=== PATIENT | male | born 1950 | race Caucasian/White ===

== ENCOUNTER 2019-06-13 02:33 | Inpatient (IN) | payer MEDICAID, MEDICARE ==
[~2019-06-13] VITALS: Ht 167.6 cm; Wt 62.3 kg
[2019-06-13] MEDS ORDERED: ALBUTEROL SULFATE 2.5 MG/3 ML ONE (02:37)
--- NOTE | 2019-06-13 02:46 | NUR ---
68Y M BIB EMS FOR SOB 81% RA INITIALLY. AFTER 1ALB 1 DUONEB NOW 94% RA, PT WAS FOUND ON THE GROUND IN FRONT OF [facility], PT STS HE HAD ONE BEER. PT REPORTS JUST MOVED HERE FROM [place] A MONTH AGO AND HAS NOT TAKEN ANY OF HIS MEDICATIONS SINCE. PT HAS HX OF COPD, CHF, HTN AND HYPERLIP. PT CONNECTED TO ALL MONITORING. RT AT BEDSIDE FOR ANOTHER BREATHING TX, PA AT BEDSIDE TO ASSESS PT. CALL LIGHT IN REACH
--- NOTE | 2019-06-13 02:50 | NUR ---
XRAY AT BEDSIDE
--- NOTE | 2019-06-13 02:57 | NUR ---
LAB AT BEDSIDE
[2019-06-13] MEDS ORDERED: ALBUTEROL/IPRATROPIUM 2.5MG/0.5MG, 3 ML NPPB ONE (03:00)
[2019-06-13 03:10] LABS: BASOPHILS # (AUTO) 0.02 x10^3/uL (0-0.1); BASOPHILS % (AUTO) 0 % (0-1); EOSINOPHILS # (AUTO) 0.07 x10^3/uL (0-0.4); EOSINOPHILS % (AUTO) 1 % (1-7); LYMPHOCYTES # (AUTO) 1.05 x10^3/uL (1-3.4); LYMPHOCYTES % (AUTO) 19 % (22-44); MD NO; MEAN CORPUSCULAR HEMOGLOBIN 30.8 pg (27.5-34.5); MEAN CORPUSCULAR HGB CONC 32.9 g/dL (33.2-36.2); MEAN CORPUSCULAR VOLUME 93.5 fL (81-97); MEAN PLATELET VOLUME 9.1 fL (7.4-10.4); MONOCYTES # (AUTO) 0.55 x10^3/uL (0.2-0.8); MONOCYTES % (AUTO) 10 % (2-9); NEUTROPHILS # (AUTO) 3.89 x10^3/uL (1.8-6.8); NEUTROPHILS % (AUTO) 70 % (42-75); PLATELET COUNT 201 x10^3/uL (130-400); RED BLOOD COUNT 4.55 x10^6/uL (4.38-5.82)
[2019-06-13 03:22] LABS: ALANINE AMINOTRANSFERASE 47 U/L (12-78); ANION GAP 7 mmol/L (5-15); CALCIUM 8.2 mg/dL (8.5-10.1); CHLORIDE 111 mmol/L (98-107); CREATININE 0.79 mg/dL (0.7-1.3)
[2019-06-13 03:26] LABS: ALKALINE PHOSPHATASE 107 U/L (45-117); BILIRUBIN,TOTAL 0.3 mg/dL (0.2-1.0); TOTAL PROTEIN 6.1 g/dL (6.4-8.2)
--- NOTE | 2019-06-13 03:28 | NUR ---
TROP 0.160 JA FROM CHEMISTRY
[2019-06-13] MEDS ORDERED: ASPIRIN 81 MG TABLET CHEW ONE (03:34)
--- NOTE | 2019-06-13 03:35 | NUR ---
MD AT BEDSIDE TO ASSESS PT
[2019-06-13] MEDS ORDERED: ASPIRIN 81 MG TABLET CHEW PO ONE (04:00)
[2019-06-13 05:20] VITALS: BP 145/86
[2019-06-13] MEDS: ENOXAPARIN 40 MG/0.4 ML SQ SCH (05:25)
[2019-06-13] MEDS ORDERED: LORazepam 1MG TABLET PO PRN ×4 (05:30)
[2019-06-13] MEDS ORDERED: ONDANSETRON 2MG/ML, 2ML IVPush PRN (05:30)
[2019-06-13] MEDS ORDERED: ACETAMINOPHEN 325 MG TABLET PO PRN ×2 (05:30→08:30)
[2019-06-13] MEDS ORDERED: ONDANSETRON ODT 4 MG PO PRN (05:30)
[2019-06-13] MEDS ORDERED: LORazepam 2 MG/ML, 1ML IV PRN ×4 (05:30)
[2019-06-13] MEDS ORDERED: OXYcodone IR 5MG TABLET PO PRN (05:30)
[2019-06-13] MEDS ORDERED: LORazepam 0.5MG TABLET PO PRN (05:30)
[2019-06-13] MEDS ORDERED: hydrALAzine 20 MG/ML, 1ML IVPush PRN (05:30)
[2019-06-13] MEDS ORDERED: POLYETHYLENE GLYCOL 17 GM PACKET PO PRN (05:30)
[2019-06-13] MEDS ORDERED: DOCUSATE 100 MG CAPSULE PO PRN (05:30)
[2019-06-13] MEDS ORDERED: BISACODYL 10 MG SUPP PR PRN (05:30)
[2019-06-13] MEDS ORDERED: PROMETHAZINE 25 MG/ML, 1ML IM PRN (05:30)
[2019-06-13] MEDS: NICOTINE 14MG/24 HR PATCH.TD24 TD SCH (06:13)
[2019-06-13 06:47] LABS: RAPID INFLUENZA A Negative (Negative); RAPID INFLUENZA B Negative (Negative)
[2019-06-13 07:15] LABS: FREE T4 (FREE THYROXINE) 1.05 ng/dL (0.76-1.46); TROPONIN I 0.136 ng/mL (0.000-0.045)
[2019-06-13] MEDS ORDERED: FUROSEMIDE 20 MG/2 ML IV SCH ×2 (07:30→09:00)
[2019-06-13] MEDS: LOSARTAN 25MG TABLET PO SCH (09:46)
[2019-06-13] MEDS: CARVEDILOL 3.125 MG TABLET PO SCH ×2 (09:46→17:14)
[2019-06-13 10:00] VITALS: BP 134/85
[2019-06-13 10:31] LABS: TROPONIN I 0.103 ng/mL (0.000-0.045)
[2019-06-13 15:00] VITALS: BP 152/94
[2019-06-13 20:38] VITALS: BP 124/90
[2019-06-13] MEDS: FUROSEMIDE 20 MG TABLET PO SCH (20:42)
[2019-06-14] MEDS: LORazepam 2 MG/ML, 1ML IV PRN ×5 (00:03→05:30)
[2019-06-14 02:48] VITALS: BP 175/71
[2019-06-14] MEDS: CARVEDILOL 3.125 MG TABLET PO SCH ×3 (05:26→19:53)
[2019-06-14] MEDS: ENOXAPARIN 40 MG/0.4 ML SQ SCH (05:30)
[2019-06-14] MEDS: NICOTINE 14MG/24 HR PATCH.TD24 TD SCH (05:37)
[2019-06-14 06:10] LABS: ALANINE AMINOTRANSFERASE 40 U/L (12-78); ALBUMIN 3.1 g/dL (3.4-5.0); ANION GAP 3 mmol/L (5-15); CALCIUM 8.2 mg/dL (8.5-10.1); CHLORIDE 109 mmol/L (98-107); CHOLESTEROL, TOTAL 137 mg/dL (140-239); CREATININE 0.81 mg/dL (0.7-1.3)
[2019-06-14 06:14] LABS: ALKALINE PHOSPHATASE 100 U/L (45-117); BILIRUBIN,TOTAL 0.6 mg/dL (0.2-1.0); CHOL/HDL RATIO 2.3; HDL CHOL % 43 % (26-37); HDL CHOLESTEROL (DIRECT) 59 mg/dL (40-60); LDL CHOLESTEROL,CALCULATED 65 mg/dL (54-169); LDL/HDL RATIO 1.1 (0.5-3.0); TOTAL PROTEIN 6.1 g/dL (6.4-8.2); TRIGLYCERIDES 66 mg/dL (50-200); VLDL CHOLESTEROL 13 mg/dL (0-25)
[2019-06-14 06:18] LABS: BASOPHILS # (AUTO) 0.04 x10^3/uL (0-0.1); BASOPHILS % (AUTO) 1 % (0-1); EOSINOPHILS # (AUTO) 0.01 x10^3/uL (0-0.4); EOSINOPHILS % (AUTO) 0 % (1-7); LYMPHOCYTES # (AUTO) 0.99 x10^3/uL (1-3.4); LYMPHOCYTES % (AUTO) 11 % (22-44); MD NO; MEAN CORPUSCULAR HEMOGLOBIN 30.8 pg (27.5-34.5); MEAN CORPUSCULAR HGB CONC 32.7 g/dL (33.2-36.2); MEAN PLATELET VOLUME 9.5 fL (7.4-10.4); MONOCYTES # (AUTO) 0.73 x10^3/uL (0.2-0.8); MONOCYTES % (AUTO) 8 % (2-9); NEUTROPHILS # (AUTO) 7.53 x10^3/uL (1.8-6.8); NEUTROPHILS % (AUTO) 81 % (42-75); PLATELET COUNT 238 x10^3/uL (130-400); RED BLOOD COUNT 4.56 x10^6/uL (4.38-5.82); RED CELL DISTRIBUTION WIDTH 16.4 % (9.4-14.8)
[2019-06-14] MEDS ORDERED: POTASSIUM CHLORIDE 20 MEQ PACKET PO ONE (07:00)
[2019-06-14] MEDS ORDERED: NALOXONE 1 MG/ML, 2ML IVPush ONE (07:30)
[2019-06-14] MEDS ORDERED: MAGNESIUM SULFATE/D5W 100 ML IV ONE (07:30)
[2019-06-14] MEDS ORDERED: FLUMAZENIL 0.1 MG/1 ML, 5ML ONE (07:44)
[2019-06-14] MEDS: AMPICILLIN/SULBACTAM 3 GM in SODIUM CHLORIDE 0.9% 100 ML IV SCH ×3 (08:00→19:56)
[2019-06-14] MEDS ORDERED: PROPOFOL 10 MG/ML, 100ML IV ONE (08:00)
[2019-06-14] MEDS ORDERED: ZIPRASIDONE 20 MG INJ IM ONE (08:00)
[2019-06-14] MEDS ORDERED: FLUMAZENIL 0.1 MG/1 ML, 5ML IVPush ONE ×2 (08:00)
[2019-06-14] MEDS ORDERED: SUCCINYLCHOLINE 20 MG/ML, 10ML ONE (08:00)
[2019-06-14] MEDS ORDERED: POTASSIUM CHLORIDE 20 MEQ, MAGNESIUM SULFATE 2 GM, THIAMINE 200 MG, FOLIC ACID 1 MG, MV... IV SCH (08:00)
[2019-06-14] MEDS ORDERED: MIDAZOLAM 1 MG/ML, 5ML ONE (08:00)
[2019-06-14] MEDS ORDERED: ETOMIDATE 20 MG/10 ML ONE (08:00)
[2019-06-14] MEDS ORDERED: MAGNESIUM SULFATE PMX 2GM/50ML 50 ML IV ONE (08:00)
[2019-06-14] MEDS: FUROSEMIDE 20 MG TABLET PO SCH ×2 (09:00→21:39)
[2019-06-14] MEDS: THIAMINE 200 MG in SODIUM CHLORIDE 0.9% 50 ML IV SCH (09:00)
[2019-06-14] MEDS: LOSARTAN 25MG TABLET PO SCH (09:00)
[2019-06-14 13:50] VITALS: BP 94/60
[2019-06-14 13:53] VITALS: BP 94/69
[2019-06-14 13:59] VITALS: BP 111/68
[2019-06-14] MEDS ORDERED: SODIUM BICARB 8.4%, 50ML SYRINGE ONE (14:14)
[2019-06-14] MEDS ORDERED: SENNA/DOCUSATE TABLET NG PRN (16:00)
[2019-06-14] MEDS ORDERED: DEXTROSE 4 GM TAB.CHEW PO PRN (16:00)
[2019-06-14] MEDS ORDERED: LIDOCAINE-MPF 1%, 2ML ENDO PRN (16:00)
[2019-06-14] MEDS ORDERED: DEXTROSE 50%, 50ML SYRINGE IVPush PRN (16:00)
[2019-06-14] MEDS ORDERED: GLUCAGON 1 MG IM PRN (16:00)
[2019-06-14] MEDS ORDERED: PHARMACY MAY ADJ FOR RENAL FX MC SCH (16:00)
[2019-06-14] MEDS ORDERED: LACTULOSE 20 GM/30 ML UDC NG PRN (16:00)
[2019-06-14] MEDS ORDERED: BISACODYL 10 MG SUPP PR PRN (16:00)
[2019-06-14] MEDS ORDERED: SENNA 176 MG/5 ML ORAL SOL NG PRN (16:00)
[2019-06-14 16:19] LABS: AMPHETAMINE SCREEN, URINE Negative (Negative); BARBITURATE SCREEN, URINE Negative (Negative); BENZODIAZEPINE SCREEN, URINE Positive (Negative); CANNABINOID SCREEN, URINE Negative (Negative); COCAINE SCREEN, URINE Negative (Negative); METHADONE SCREEN, URINE Negative (Negative); OPIATE SCREEN, URINE Negative (Negative)
[2019-06-14] MEDS: ALBUTEROL/IPRATROPIUM 2.5MG/0.5MG, 3 ML INLINE SCH ×2 (19:00→22:10)
[2019-06-14] MEDS: PROPOFOL 100 ML IV PRN (20:05)
[2019-06-14] MEDS: SODIUM CHLORIDE FLUSH 10ML SYR IVF SCH (21:39)
[2019-06-15] MEDS: AMPICILLIN/SULBACTAM 3 GM in SODIUM CHLORIDE 0.9% 100 ML IV SCH ×4 (02:20→20:34)
[2019-06-15] MEDS: ALBUTEROL/IPRATROPIUM 2.5MG/0.5MG, 3 ML INLINE SCH ×6 (02:44→22:27)
[2019-06-15] MEDS: PROPOFOL 100 ML IV PRN ×3 (03:20→20:45)
[2019-06-15 05:18] LABS: BASOPHILS # (AUTO) 0.09 x10^3/uL (0-0.1); BASOPHILS % (AUTO) 1 % (0-1); EOSINOPHILS % (AUTO) 0 % (1-7); LYMPHOCYTES # (AUTO) 1.07 x10^3/uL (1-3.4); LYMPHOCYTES % (AUTO) 14 % (22-44); MD NO; MEAN CORPUSCULAR HEMOGLOBIN 30.3 pg (27.5-34.5); MEAN CORPUSCULAR HGB CONC 32.7 g/dL (33.2-36.2); MEAN CORPUSCULAR VOLUME 92.6 fL (81-97); MEAN PLATELET VOLUME 8.9 fL (7.4-10.4); MONOCYTES # (AUTO) 0.76 x10^3/uL (0.2-0.8); MONOCYTES % (AUTO) 10 % (2-9); NEUTROPHILS % (AUTO) 74 % (42-75); PLATELET COUNT 214 x10^3/uL (130-400); RED BLOOD COUNT 4.49 x10^6/uL (4.38-5.82); RED CELL DISTRIBUTION WIDTH 15.6 % (9.4-14.8)
[2019-06-15 05:28] LABS: ANION GAP 6 mmol/L (5-15); CALCIUM 8.1 mg/dL (8.5-10.1); CHLORIDE 110 mmol/L (98-107); CREATININE 1.27 mg/dL (0.7-1.3)
[2019-06-15] MEDS: NICOTINE 14MG/24 HR PATCH.TD24 TD SCH (05:54)
[2019-06-15] MEDS: CARVEDILOL 3.125 MG TABLET PO SCH ×2 (05:55→17:48)
[2019-06-15] MEDS: ENOXAPARIN 40 MG/0.4 ML SQ SCH (05:55)
[2019-06-15] MEDS: POTASSIUM CHLORIDE 10% 40 MEQ/30 ML UDC PO SCH ×2 (09:06→20:35)
[2019-06-15] MEDS: FUROSEMIDE 20 MG TABLET PO SCH ×2 (09:10→20:35)
[2019-06-15] MEDS: LOSARTAN 25MG TABLET PO SCH (09:13)
[2019-06-15] MEDS: THIAMINE 200 MG in SODIUM CHLORIDE 0.9% 50 ML IV SCH (09:14)
[2019-06-15] MEDS: SODIUM CHLORIDE FLUSH 10ML SYR IVF SCH ×2 (09:16→20:35)
[2019-06-15] MEDS: DIAZEPAM 5 MG/ML, 2ML IVPush SCH ×3 (09:22→20:35)
[2019-06-15] MEDS ORDERED: MIDAZOLAM 1 MG/ML, 2ML ONE (10:38)
[2019-06-15] MEDS ORDERED: MIDAZOLAM 1 MG/ML, 2ML IVPush PRN (11:00)
[2019-06-16] MEDS: ALBUTEROL/IPRATROPIUM 2.5MG/0.5MG, 3 ML INLINE SCH ×6 (03:00→22:34)
[2019-06-16] MEDS: DIAZEPAM 5 MG/ML, 2ML IVPush SCH (03:07)
[2019-06-16] MEDS: AMPICILLIN/SULBACTAM 3 GM in SODIUM CHLORIDE 0.9% 100 ML IV SCH ×4 (03:07→20:26)
[2019-06-16] MEDS: PROPOFOL 100 ML IV PRN ×4 (03:08→22:56)
[2019-06-16 04:41] LABS: BASOPHILS # (AUTO) 0.04 x10^3/uL (0-0.1); BASOPHILS % (AUTO) 1 % (0-1); EOSINOPHILS # (AUTO) 0.07 x10^3/uL (0-0.4); EOSINOPHILS % (AUTO) 1 % (1-7); LYMPHOCYTES # (AUTO) 1.14 x10^3/uL (1-3.4); LYMPHOCYTES % (AUTO) 20 % (22-44); MD NO; MEAN CORPUSCULAR HEMOGLOBIN 30.5 pg (27.5-34.5); MEAN CORPUSCULAR HGB CONC 32.5 g/dL (33.2-36.2); MEAN CORPUSCULAR VOLUME 93.9 fL (81-97); MEAN PLATELET VOLUME 8.6 fL (7.4-10.4); MONOCYTES # (AUTO) 0.59 x10^3/uL (0.2-0.8); MONOCYTES % (AUTO) 11 % (2-9); NEUTROPHILS # (AUTO) 3.73 x10^3/uL (1.8-6.8); NEUTROPHILS % (AUTO) 67 % (42-75); PLATELET COUNT 205 x10^3/uL (130-400); RED BLOOD COUNT 4.79 x10^6/uL (4.38-5.82); RED CELL DISTRIBUTION WIDTH 15.4 % (9.4-14.8)
[2019-06-16 04:48] LABS: ANION GAP 6 mmol/L (5-15); CALCIUM 7.7 mg/dL (8.5-10.1); CHLORIDE 112 mmol/L (98-107)
[2019-06-16 04:50] LABS: CREATININE 0.85 mg/dL (0.7-1.3)
[2019-06-16] MEDS: CARVEDILOL 3.125 MG TABLET PO SCH ×2 (05:43→18:10)
[2019-06-16] MEDS: ENOXAPARIN 40 MG/0.4 ML SQ SCH (05:43)
[2019-06-16] MEDS: NICOTINE 14MG/24 HR PATCH.TD24 TD SCH (05:43)
[2019-06-16] MEDS: THIAMINE 200 MG in SODIUM CHLORIDE 0.9% 50 ML IV SCH (08:18)
[2019-06-16] MEDS: POTASSIUM CHLORIDE 10% 40 MEQ/30 ML UDC PO SCH ×2 (08:19→20:27)
[2019-06-16] MEDS: FUROSEMIDE 20 MG TABLET PO SCH ×2 (08:20→20:27)
[2019-06-16] MEDS: LOSARTAN 25MG TABLET PO SCH (08:21)
[2019-06-16] MEDS: SODIUM CHLORIDE FLUSH 10ML SYR IVF SCH ×2 (08:22→20:27)
[2019-06-17] MEDS: AMPICILLIN/SULBACTAM 3 GM in SODIUM CHLORIDE 0.9% 100 ML IV SCH ×4 (02:04→20:41)
[2019-06-17] MEDS: ALBUTEROL/IPRATROPIUM 2.5MG/0.5MG, 3 ML INLINE SCH ×5 (03:00→19:00)
[2019-06-17] MEDS: PROPOFOL 100 ML IV PRN (04:12)
[2019-06-17 04:51] LABS: BASOPHILS # (AUTO) 0.02 x10^3/uL (0-0.1); BASOPHILS % (AUTO) 0 % (0-1); EOSINOPHILS # (AUTO) 0.12 x10^3/uL (0-0.4); EOSINOPHILS % (AUTO) 2 % (1-7); LYMPHOCYTES % (AUTO) 21 % (22-44); MD NO; MEAN CORPUSCULAR HGB CONC 32.2 g/dL (33.2-36.2); MEAN CORPUSCULAR VOLUME 93.2 fL (81-97); MEAN PLATELET VOLUME 9.2 fL (7.4-10.4); MONOCYTES # (AUTO) 0.68 x10^3/uL (0.2-0.8); MONOCYTES % (AUTO) 12 % (2-9); NEUTROPHILS # (AUTO) 3.64 x10^3/uL (1.8-6.8); NEUTROPHILS % (AUTO) 64 % (42-75); PLATELET COUNT 221 x10^3/uL (130-400); RED BLOOD COUNT 4.62 x10^6/uL (4.38-5.82); RED CELL DISTRIBUTION WIDTH 15.6 % (9.4-14.8)
[2019-06-17 04:59] LABS: ANION GAP 5 mmol/L (5-15); CALCIUM 8.1 mg/dL (8.5-10.1); CHLORIDE 116 mmol/L (98-107); CREATININE 0.86 mg/dL (0.7-1.3); TRIGLYCERIDES 148 mg/dL (50-200)
[2019-06-17] MEDS: ENOXAPARIN 40 MG/0.4 ML SQ SCH (05:49)
[2019-06-17] MEDS: CARVEDILOL 3.125 MG TABLET PO SCH ×2 (05:49→18:04)
[2019-06-17] MEDS: NICOTINE 14MG/24 HR PATCH.TD24 TD SCH (05:49)
[2019-06-17] MEDS: DEXMEDETOMIDINE 400 MCG in SODIUM CHLORIDE 0.9% 96 ML IV PRN ×2 (08:21→18:05)
[2019-06-17] MEDS: FENTANYL PF 100 MCG/2ML IVPush PRN ×4 (08:45→18:22)
[2019-06-17] MEDS: THIAMINE 200 MG in SODIUM CHLORIDE 0.9% 50 ML IV SCH (08:46)
[2019-06-17] MEDS: SODIUM CHLORIDE FLUSH 10ML SYR IVF SCH ×2 (08:46→20:41)
[2019-06-17] MEDS: LOSARTAN 25MG TABLET PO SCH (10:00)
[2019-06-17] MEDS: FUROSEMIDE 20 MG TABLET PO SCH ×2 (10:00→20:42)
[2019-06-18] MEDS: AMPICILLIN/SULBACTAM 3 GM in SODIUM CHLORIDE 0.9% 100 ML IV SCH ×4 (02:00→19:57)
[2019-06-18 04:23] LABS: BASOPHILS # (AUTO) 0.05 x10^3/uL (0-0.1); BASOPHILS % (AUTO) 1 % (0-1); EOSINOPHILS # (AUTO) 0.12 x10^3/uL (0-0.4); EOSINOPHILS % (AUTO) 2 % (1-7); LYMPHOCYTES % (AUTO) 17 % (22-44); MD NO; MEAN CORPUSCULAR HEMOGLOBIN 30.3 pg (27.5-34.5); MEAN CORPUSCULAR HGB CONC 32.5 g/dL (33.2-36.2); MEAN CORPUSCULAR VOLUME 93.3 fL (81-97); MEAN PLATELET VOLUME 8.6 fL (7.4-10.4); MONOCYTES # (AUTO) 0.57 x10^3/uL (0.2-0.8); MONOCYTES % (AUTO) 10 % (2-9); NEUTROPHILS # (AUTO) 4.11 x10^3/uL (1.8-6.8); NEUTROPHILS % (AUTO) 70 % (42-75); PLATELET COUNT 214 x10^3/uL (130-400); RED BLOOD COUNT 4.61 x10^6/uL (4.38-5.82); RED CELL DISTRIBUTION WIDTH 15.1 % (9.4-14.8)
[2019-06-18 04:34] LABS: ANION GAP 5 mmol/L (5-15); CALCIUM 8.1 mg/dL (8.5-10.1); CHLORIDE 114 mmol/L (98-107); CREATININE 0.77 mg/dL (0.7-1.3)
[2019-06-18] MEDS: ENOXAPARIN 40 MG/0.4 ML SQ SCH (05:30)
[2019-06-18] MEDS: ZIPRASIDONE 20 MG INJ IM PRN ×2 (06:24→11:39)
[2019-06-18] MEDS ORDERED: ALBUTEROL/IPRATROPIUM 2.5MG/0.5MG, 3 ML NPPB SCH (07:00)
[2019-06-18] MEDS: FUROSEMIDE 20 MG TABLET PO SCH ×3 (08:55→20:06)
[2019-06-18] MEDS: CARVEDILOL 3.125 MG TABLET PO SCH ×2 (08:55→17:15)
[2019-06-18] MEDS: LOSARTAN 25MG TABLET PO SCH (08:56)
[2019-06-18] MEDS: SODIUM CHLORIDE FLUSH 10ML SYR IVF SCH ×2 (08:56→19:58)
[2019-06-18] MEDS: THIAMINE 200 MG in SODIUM CHLORIDE 0.9% 50 ML IV SCH (10:42)
[2019-06-18] MEDS: DEXMEDETOMIDINE 400 MCG in SODIUM CHLORIDE 0.9% 96 ML IV PRN (14:54)
[2019-06-19] MEDS: DEXMEDETOMIDINE 400 MCG in SODIUM CHLORIDE 0.9% 96 ML IV PRN (00:25)
[2019-06-19] MEDS: AMPICILLIN/SULBACTAM 3 GM in SODIUM CHLORIDE 0.9% 100 ML IV SCH ×4 (03:03→20:23)
[2019-06-19] MEDS: ENOXAPARIN 40 MG/0.4 ML SQ SCH (05:31)
[2019-06-19] MEDS: CARVEDILOL 3.125 MG TABLET PO SCH ×2 (05:31→17:54)
[2019-06-19 06:21] LABS: BASOPHILS # (AUTO) 0.04 x10^3/uL (0-0.1); BASOPHILS % (AUTO) 1 % (0-1); EOSINOPHILS # (AUTO) 0.13 x10^3/uL (0-0.4); EOSINOPHILS % (AUTO) 2 % (1-7); LYMPHOCYTES # (AUTO) 1.07 x10^3/uL (1-3.4); LYMPHOCYTES % (AUTO) 18 % (22-44); MD NO; MEAN CORPUSCULAR HEMOGLOBIN 30.3 pg (27.5-34.5); MEAN CORPUSCULAR HGB CONC 32.1 g/dL (33.2-36.2); MEAN CORPUSCULAR VOLUME 94.4 fL (81-97); MEAN PLATELET VOLUME 8.8 fL (7.4-10.4); MONOCYTES # (AUTO) 0.55 x10^3/uL (0.2-0.8); MONOCYTES % (AUTO) 9 % (2-9); NEUTROPHILS # (AUTO) 4.35 x10^3/uL (1.8-6.8); NEUTROPHILS % (AUTO) 71 % (42-75); PLATELET COUNT 197 x10^3/uL (130-400); RED CELL DISTRIBUTION WIDTH 15.5 % (9.4-14.8)
[2019-06-19 06:24] LABS: ANION GAP 5 mmol/L (5-15); CHLORIDE 112 mmol/L (98-107)
[2019-06-19] MEDS: FUROSEMIDE 20 MG TABLET PO SCH ×2 (08:48→20:23)
[2019-06-19] MEDS: SODIUM CHLORIDE FLUSH 10ML SYR IVF SCH ×2 (08:50→20:24)
[2019-06-19] MEDS: LOSARTAN 25MG TABLET PO SCH (08:54)
[2019-06-19 20:11] VITALS: BP 131/90
[2019-06-20] VITALS (7 sets, daily range): BP systolic 125–146; BP diastolic 82–99
[2019-06-20] MEDS: AMPICILLIN/SULBACTAM 3 GM in SODIUM CHLORIDE 0.9% 100 ML IV SCH ×2 (02:18→08:33)
[2019-06-20 05:02] LABS: BASOPHILS # (AUTO) 0.05 x10^3/uL (0-0.1); BASOPHILS % (AUTO) 1 % (0-1); EOSINOPHILS # (AUTO) 0.16 x10^3/uL (0-0.4); EOSINOPHILS % (AUTO) 2 % (1-7); LYMPHOCYTES # (AUTO) 1.56 x10^3/uL (1-3.4); LYMPHOCYTES % (AUTO) 22 % (22-44); MD NO; MEAN CORPUSCULAR HEMOGLOBIN 30.3 pg (27.5-34.5); MEAN CORPUSCULAR HGB CONC 32.8 g/dL (33.2-36.2); MEAN CORPUSCULAR VOLUME 92.4 fL (81-97); MEAN PLATELET VOLUME 8.6 fL (7.4-10.4); MONOCYTES # (AUTO) 0.68 x10^3/uL (0.2-0.8); MONOCYTES % (AUTO) 10 % (2-9); NEUTROPHILS # (AUTO) 4.64 x10^3/uL (1.8-6.8); NEUTROPHILS % (AUTO) 66 % (42-75); PLATELET COUNT 198 x10^3/uL (130-400); RED BLOOD COUNT 4.74 x10^6/uL (4.38-5.82)
[2019-06-20 05:05] LABS: ANION GAP 6 mmol/L (5-15); CALCIUM 7.8 mg/dL (8.5-10.1); CHLORIDE 108 mmol/L (98-107); CREATININE 0.87 mg/dL (0.7-1.3); TRIGLYCERIDES 94 mg/dL (50-200)
[2019-06-20] MEDS: CARVEDILOL 3.125 MG TABLET PO SCH ×2 (05:44→17:36)
[2019-06-20] MEDS: ENOXAPARIN 40 MG/0.4 ML SQ SCH (05:44)
[2019-06-20] MEDS ORDERED: POTASSIUM CHLORIDE 20 MEQ TAB.ER.PRT PO ONE (06:30)
[2019-06-20] MEDS: FUROSEMIDE 20 MG TABLET PO SCH ×2 (08:33→19:55)
[2019-06-20] MEDS: SPIRONOLACTONE 25 MG TABLET PO SCH (08:33)
[2019-06-20] MEDS: SODIUM CHLORIDE FLUSH 10ML SYR IVF SCH ×2 (08:34→19:55)
[2019-06-20] MEDS: LOSARTAN 25MG TABLET PO SCH (08:34)
[2019-06-20] MEDS: MULTIVITAMINS/MINERALS TABLET PO SCH (11:09)
[2019-06-21 01:03] VITALS: BP 130/83
[2019-06-21] MEDS: CARVEDILOL 3.125 MG TABLET PO SCH ×2 (06:03→18:12)
[2019-06-21] MEDS: ENOXAPARIN 40 MG/0.4 ML SQ SCH (06:03)
[2019-06-21 06:24] LABS: BASOPHILS # (AUTO) 0.04 x10^3/uL (0-0.1); BASOPHILS % (AUTO) 1 % (0-1); EOSINOPHILS # (AUTO) 0.18 x10^3/uL (0-0.4); EOSINOPHILS % (AUTO) 3 % (1-7); LYMPHOCYTES # (AUTO) 1.36 x10^3/uL (1-3.4); LYMPHOCYTES % (AUTO) 21 % (22-44); MD NO; MEAN CORPUSCULAR HEMOGLOBIN 30.5 pg (27.5-34.5); MEAN CORPUSCULAR HGB CONC 33.1 g/dL (33.2-36.2); MEAN PLATELET VOLUME 9.1 fL (7.4-10.4); MONOCYTES # (AUTO) 0.54 x10^3/uL (0.2-0.8); MONOCYTES % (AUTO) 8 % (2-9); NEUTROPHILS # (AUTO) 4.25 x10^3/uL (1.8-6.8); NEUTROPHILS % (AUTO) 67 % (42-75); PLATELET COUNT 198 x10^3/uL (130-400); RED BLOOD COUNT 5.13 x10^6/uL (4.38-5.82); RED CELL DISTRIBUTION WIDTH 14.8 % (9.4-14.8)
[2019-06-21 06:36] LABS: ANION GAP 6 mmol/L (5-15); CALCIUM 7.9 mg/dL (8.5-10.1); CHLORIDE 106 mmol/L (98-107); CREATININE 0.68 mg/dL (0.7-1.3)
[2019-06-21 07:41] VITALS: BP 150/93
[2019-06-21] MEDS: MULTIVITAMINS/MINERALS TABLET PO SCH (07:44)
[2019-06-21] MEDS: SPIRONOLACTONE 25 MG TABLET PO SCH (07:44)
[2019-06-21] MEDS: SODIUM CHLORIDE FLUSH 10ML SYR IVF SCH ×2 (07:44→19:42)
[2019-06-21] MEDS: FUROSEMIDE 20 MG TABLET PO SCH ×2 (07:45→19:41)
[2019-06-21] MEDS: LOSARTAN 25MG TABLET PO SCH (07:55)
[2019-06-21 13:41] VITALS: BP 125/89
[2019-06-21 20:00] VITALS: BP 132/85
[2019-06-22 00:40] VITALS: BP 133/84
[2019-06-22] MEDS: ENOXAPARIN 40 MG/0.4 ML SQ SCH (05:49)
[2019-06-22] MEDS: CARVEDILOL 3.125 MG TABLET PO SCH ×2 (05:49→17:32)
[2019-06-22 05:50] LABS: BASOPHILS # (AUTO) 0.05 x10^3/uL (0-0.1); BASOPHILS % (AUTO) 1 % (0-1); EOSINOPHILS # (AUTO) 0.15 x10^3/uL (0-0.4); EOSINOPHILS % (AUTO) 2 % (1-7); LYMPHOCYTES # (AUTO) 1.46 x10^3/uL (1-3.4); LYMPHOCYTES % (AUTO) 23 % (22-44); MD NO; MEAN CORPUSCULAR HEMOGLOBIN 30.1 pg (27.5-34.5); MEAN CORPUSCULAR HGB CONC 32.9 g/dL (33.2-36.2); MEAN CORPUSCULAR VOLUME 91.4 fL (81-97); MEAN PLATELET VOLUME 9.1 fL (7.4-10.4); MONOCYTES # (AUTO) 0.57 x10^3/uL (0.2-0.8); MONOCYTES % (AUTO) 9 % (2-9); NEUTROPHILS # (AUTO) 4.18 x10^3/uL (1.8-6.8); NEUTROPHILS % (AUTO) 65 % (42-75); PLATELET COUNT 212 x10^3/uL (130-400); RED BLOOD COUNT 5.18 x10^6/uL (4.38-5.82); RED CELL DISTRIBUTION WIDTH 14.6 % (9.4-14.8)
[2019-06-22 06:03] LABS: ANION GAP 4 mmol/L (5-15); CALCIUM 7.9 mg/dL (8.5-10.1); CHLORIDE 107 mmol/L (98-107)
[2019-06-22 06:04] LABS: CREATININE 0.63 mg/dL (0.7-1.3)
[2019-06-22 06:55] VITALS: BP 154/104
[2019-06-22] MEDS: LOSARTAN 25MG TABLET PO SCH (09:07)
[2019-06-22] MEDS: MULTIVITAMINS/MINERALS TABLET PO SCH (09:08)
[2019-06-22] MEDS: SPIRONOLACTONE 25 MG TABLET PO SCH (09:08)
[2019-06-22] MEDS: FUROSEMIDE 20 MG TABLET PO SCH ×2 (09:08→22:31)
[2019-06-22] MEDS: SODIUM CHLORIDE FLUSH 10ML SYR IVF SCH ×2 (09:09→22:32)
[2019-06-22 15:44] VITALS: BP 157/113
[2019-06-22 19:44] VITALS: BP 158/105
[2019-06-23 02:12] VITALS: BP 149/89
[2019-06-23] MEDS: ENOXAPARIN 40 MG/0.4 ML SQ SCH (06:24)
[2019-06-23 06:25] VITALS: BP 164/94
[2019-06-23] MEDS: CARVEDILOL 3.125 MG TABLET PO SCH (06:25)
[2019-06-23] MEDS: MULTIVITAMINS/MINERALS TABLET PO SCH (08:56)
[2019-06-23] MEDS: SODIUM CHLORIDE FLUSH 10ML SYR IVF SCH (08:56)
[2019-06-23] MEDS: FUROSEMIDE 20 MG TABLET PO SCH (08:56)
[2019-06-23] MEDS: SPIRONOLACTONE 25 MG TABLET PO SCH (08:56)
[2019-06-23] MEDS ORDERED: LOSARTAN 50MG TABLET PO SCH (09:00)
[2019-06-23] MEDS ORDERED: CARV3.1212 PO (10:37)
[2019-06-23] MEDS ORDERED: FURO20TA3 PO (10:37)
[2019-06-23] MEDS ORDERED: SPIR25TA PO (10:37)
[2019-06-23] MEDS ORDERED: LOSA50TA2 PO (10:37)
== END 2019-06-23 10:20 | disposition left against medical advice (07) | DRG 208 ==
LOC: ED 03:55 → EDIP 04:00 → 5SO 04:24 → CCU 06-14 14:12 → 3N 06-20 17:57
PROVIDERS: ADMIT Internal Medicine; ATTEND Hospitalist
PROC: 02HV33Z Insertion of Infusion Device into Superior Vena Cava, Percutaneous Approach (ICD-10-PCS; principal; 2019-06-17)
PROC: 5A1945Z Respiratory Ventilation, 24-96 Consecutive Hours (ICD-10-PCS; 2019-06-17)
PROC: B548ZZA Ultrasonography of Superior Vena Cava, Guidance (ICD-10-PCS; 2019-06-17)
PROC: 0BH17EZ Insertion of Endotracheal Airway into Trachea, Via Natural or Artificial Opening (ICD-10-PCS; 2019-06-17)
DX: J96.01 Acute respiratory failure with hypoxia (principal); J14 Pneumonia due to Hemophilus influenzae; I21.A1 Myocardial infarction type 2; I50.43 Acute on chronic combined systolic (congestive) and diastolic (congestive) heart failure; G92 Toxic encephalopathy; Z99.11 Dependence on respirator [ventilator] status; F10.231 Alcohol dependence with withdrawal delirium; J44.0 Chronic obstructive pulmonary disease with (acute) lower respiratory infection; I47.2 Ventricular tachycardia; I11.0 Hypertensive heart disease with heart failure; E88.09 Other disorders of plasma-protein metabolism, not elsewhere classified; F17.210 Nicotine dependence, cigarettes, uncomplicated; I27.29 Other secondary pulmonary hypertension; I08.1 Rheumatic disorders of both mitral and tricuspid valves; K70.9 Alcoholic liver disease, unspecified; B19.20 Unspecified viral hepatitis C without hepatic coma; Z53.21 Procedure and treatment not carried out due to patient leaving prior to being seen by health care provider; F12.10 Cannabis abuse, uncomplicated; I50.82 Biventricular heart failure; Z91.14 Patient's other noncompliance with medication regimen; Z59.0 Homelessness; Z71.51 Drug abuse counseling and surveillance of drug abuser; Z91.19 Patient's noncompliance with other medical treatment and regimen; Z79.899 Other long term (current) drug therapy; Z71.6 Tobacco abuse counseling
CPT/HCPCS: 36415; 36573; 36600; 70450; 71045; 80048; 80053; 80061; 80074; 80307; 82140; 82803; 82805; 82962; 83036; 83735; 83880; 84100; 84145; 84439; 84443; 84478; 84484; 85025; 87070; 87081; 87205; 87400; 87521; 87806; 93005; 93306; 94002; 94003; 94640; 99285; G0378; J0295; J1650; J2250; J2704; J3010; J3360; J3411; J3486; J7620; C1751; G0475; J0330; J0360; J2060; J2310; J7512

== ENCOUNTER 2019-07-16 23:19 | Emergency (ER) | payer MEDICARE ==
[~2019-07-16] VITALS: Ht 167.6 cm; Wt 59.0 kg
[~2019-07-16 23:19] MED LIST: CARV3.1212 PO; FURO20TA3 PO; LOSA50TA2 PO; SPIR25TA PO
--- NOTE | 2019-07-16 23:26 | NUR ---
task rn: marina louis, was seen here a week ago for pneumonia. was perscribed medications but hasnt picked them up from the pharmacy because he says he hasnt been able to walk there. today c/o sob for 1 week. pt in no acute distress. attached to monitors.
--- NOTE | 2019-07-16 23:50 | NUR ---
PT RESTING ON [employer], CONNECTED TO MONITORING. CALL LIGHT IN REACH. VS STABLE. AWAITING ORDERS.
--- NOTE | 2019-07-17 00:27 | NUR ---
PT SLEEPING ON GURNEY. VS STABLE. AWAITING RESULTS. CALL LIGHT IN REACH.
[2019-07-17 00:46] LABS: BASOPHILS # (AUTO) 0.04 x10^3/uL (0-0.1); BASOPHILS % (AUTO) 1 % (0-1); EOSINOPHILS # (AUTO) 0.13 x10^3/uL (0-0.4); EOSINOPHILS % (AUTO) 2 % (1-7); LYMPHOCYTES # (AUTO) 1.19 x10^3/uL (1-3.4); LYMPHOCYTES % (AUTO) 16 % (22-44); MD NO; MEAN CORPUSCULAR HEMOGLOBIN 29.4 pg (27.5-34.5); MEAN CORPUSCULAR HGB CONC 32.2 g/dL (33.2-36.2); MEAN CORPUSCULAR VOLUME 91.4 fL (81-97); MEAN PLATELET VOLUME 8.7 fL (7.4-10.4); MONOCYTES # (AUTO) 0.56 x10^3/uL (0.2-0.8); MONOCYTES % (AUTO) 8 % (2-9); NEUTROPHILS # (AUTO) 5.35 x10^3/uL (1.8-6.8); NEUTROPHILS % (AUTO) 74 % (42-75); PLATELET COUNT 214 x10^3/uL (130-400); RED BLOOD COUNT 4.24 x10^6/uL (4.38-5.82); RED CELL DISTRIBUTION WIDTH 15.3 % (9.4-14.8)
[2019-07-17 00:54] LABS: ANION GAP 6 mmol/L (5-15); CALCIUM 8.2 mg/dL (8.5-10.1); CHLORIDE 110 mmol/L (98-107)
[2019-07-17 00:58] LABS: TROPONIN I 0.108 ng/mL (0.000-0.045)
[2019-07-17] MEDS ORDERED: ACETAMINOPHEN 500 MG TABLET ONE (01:28)
[2019-07-17] MEDS ORDERED: ACETAMINOPHEN 500 MG TABLET PO ONE (01:30)
[2019-07-17] MEDS ORDERED: POTASSIUM CHLORIDE 20 MEQ TAB.ER.PRT PO ONE (01:30)
[2019-07-17] MEDS ORDERED: FUROSEMIDE 20 MG TABLET PO SCH (01:30)
--- NOTE | 2019-07-17 01:34 | NUR ---
PT DESATS TO 83% WHEN SLEEPING. PLACED ON 2L NC. DR.VAN LEAL NOTIFIED.
--- NOTE | 2019-07-17 02:00 | NUR ---
REPORT RECEIVED FROM ANAYELI ROSS. PLAN OF CARE DISCUSSED
[2019-07-17 02:43] VITALS: BP 147/96
--- NOTE | 2019-07-17 02:52 | NUR ---
Patient given discharge instructions and they have confirmed that they understand the instructions. Patient ambulatory with steady gait.
== END 2019-07-17 02:54 | disposition home or self-care (01) ==
LOC: ED 07-17
DX: I11.0 Hypertensive heart disease with heart failure (principal); I50.9 Heart failure, unspecified; R06.00 Dyspnea, unspecified; F17.200 Nicotine dependence, unspecified, uncomplicated; I25.2 Old myocardial infarction
CPT/HCPCS: 36415; 71045; 80048; 84484; 85025; 93005; 99285

== ENCOUNTER 2019-08-19 13:47 | Emergency (ER) | payer SELFPAY ==
[~2019-08-19] VITALS: Ht 167.6 cm; Wt 63.8 kg
--- NOTE | 2019-08-19 14:28 | NUR ---
AND PT CONTINUES TO TASK RN: PT REFUSSES TO HAVE IV PLACED STATING HE COULD ONLY HAVE A "BUTTERFULY" I BROUGHT IN A 22G BUT PT CONTINUED TO REFUSE.
[2019-08-19] MEDS ORDERED: LORazepam 1MG TABLET ONE (14:59)
[2019-08-19] MEDS ORDERED: ASPIRIN 81 MG TABLET CHEW PO ONE (15:00)
[2019-08-19] MEDS ORDERED: LORazepam 1MG TABLET PO ONE (15:00)
[2019-08-19] MEDS ORDERED: ASPIRIN 81 MG TABLET CHEW ONE (15:00)
[2019-08-19] MEDS ORDERED: ONDANSETRON ODT 4 MG ONE ×2 (15:04→15:10)
[2019-08-19 15:05] LABS: BASOPHILS # (AUTO) 0.03 x10^3/uL (0-0.1); BASOPHILS % (AUTO) 0 % (0-1); EOSINOPHILS # (AUTO) 0.08 x10^3/uL (0-0.4); EOSINOPHILS % (AUTO) 1 % (1-7); LYMPHOCYTES # (AUTO) 0.97 x10^3/uL (1-3.4); LYMPHOCYTES % (AUTO) 15 % (22-44); MD NO; MEAN CORPUSCULAR HEMOGLOBIN 29.2 pg (27.5-34.5); MEAN CORPUSCULAR HGB CONC 31.7 g/dL (33.2-36.2); MEAN CORPUSCULAR VOLUME 92.2 fL (81-97); MEAN PLATELET VOLUME 8.4 fL (7.4-10.4); MONOCYTES # (AUTO) 0.49 x10^3/uL (0.2-0.8); MONOCYTES % (AUTO) 8 % (2-9); NEUTROPHILS # (AUTO) 4.85 x10^3/uL (1.8-6.8); NEUTROPHILS % (AUTO) 76 % (42-75); PLATELET COUNT 220 x10^3/uL (130-400); RED BLOOD COUNT 4.47 x10^6/uL (4.38-5.82); RED CELL DISTRIBUTION WIDTH 16.9 % (9.4-14.8)
[2019-08-19 15:16] LABS: ALANINE AMINOTRANSFERASE 51 U/L (12-78); ALBUMIN 3.2 g/dL (3.4-5.0); ANION GAP 6 mmol/L (5-15); CHLORIDE 115 mmol/L (98-107); CREATININE 0.57 mg/dL (0.7-1.3)
--- NOTE | 2019-08-19 15:19 | NUR ---
THIS TECH DID EKG, BROUGHT PT NEW PANTS, AND A WARM BLANKET
[2019-08-19 15:21] LABS: ALKALINE PHOSPHATASE 91 U/L (45-117); BILIRUBIN,TOTAL 0.4 mg/dL (0.2-1.0); TOTAL PROTEIN 6.4 g/dL (6.4-8.2); TROPONIN I 0.099 ng/mL (0.000-0.045)
[2019-08-19] MEDS ORDERED: ONDANSETRON ODT 8 MG PO ONE (15:30)
[2019-08-19 15:42] VITALS: BP 169/106
== END 2019-08-19 15:56 | disposition home or self-care (01) ==
LOC: ED 14:04
DX: R10.13 Epigastric pain (principal); I11.0 Hypertensive heart disease with heart failure; I50.9 Heart failure, unspecified; I49.3 Ventricular premature depolarization; Z91.14 Patient's other noncompliance with medication regimen; I25.2 Old myocardial infarction; Z59.0 Homelessness
CPT/HCPCS: 36415; 71045; 80053; 83880; 84484; 85025; 93005; 99285; Q0162